=== PATIENT | male | born 2000 | race Caucasian/White ===

== ENCOUNTER 2021-09-24 11:07 | Outpatient (CLI) | payer BC ==
[2021-09-24 21:49] LABS: SARS-CoV-2 PCR by NAA Not Detected (NotDetected)
== END 2021-09-24 11:08 | disposition home or self-care (01) ==
LOC: LABBT 11:07
PROVIDERS: ATTEND Urology
DX: Z20.822 Contact with and (suspected) exposure to COVID-19 (principal)
CPT/HCPCS: U0003; U0005

== ENCOUNTER 2021-09-26 08:03 | Day surgery (SDC) | payer BC ==
[2021-09-25 09:50] VITALS: BMI 25.7
[2021-09-26] MEDS ORDERED: Midazolam HCl 2 mg/2 ml Vial ONE (11:22)
[2021-09-26] MEDS ORDERED: fentaNYL Citrate/PF 100 MCG/2 ML SYRINGE ONE (11:23)
[2021-09-26] MEDS ORDERED: Ioversol 68 % 50 ML VIAL ONE (11:26)
[2021-09-26] MEDS ORDERED: Levofloxacin 500 mg/D5W 100 ml Premix Bag ONE (11:37)
[2021-09-26] MEDS ORDERED: Dexamethasone 20 MG/5 ML VIAL ONE (11:42)
[2021-09-26] MEDS ORDERED: PROPOFOL 200 MG/20 ML VIAL ONE (11:42)
[2021-09-26] MEDS ORDERED: Lidocaine 1% PF 5 ML VIAL ONE (11:42)
[2021-09-26] MEDS ORDERED: Ondansetron PF 4 MG/2 ML Vial ONE (11:42)
[2021-09-26] MEDS ORDERED: Phenazopyridine HCl 100 MG TAB ONE (13:14)
[2021-09-26] MEDS ORDERED: Oxybutynin 5 MG TAB ONE (13:14)
[2021-09-26] MEDS ORDERED: Ketorolac Tromethamine 30 MG/ML VIAL ONE (13:14)
[2021-09-26] MEDS ORDERED: Fentanyl 100 MCG/2 ML VIAL ONE (13:23)
== END 2021-09-26 15:15 | disposition home or self-care (01) ==
LOC: SDC 08:03
PROVIDERS: ATTEND Urology
PROC: 0T768DZ Dilation of Right Ureter with Intraluminal Device, Via Natural or Artificial Opening Endoscopic (ICD-10-PCS; principal; 2021-09-26)
PROC: 0TF38ZZ Fragmentation in Right Kidney Pelvis, Via Natural or Artificial Opening Endoscopic (ICD-10-PCS; principal; 2021-09-26)
DX: N20.1 Calculus of ureter (principal); G80.9 Cerebral palsy, unspecified; Z79.899 Other long term (current) drug therapy
CPT/HCPCS: 74420; C2617; J1100; J1885; J1956; J2250; J2405; J2704; J3010; Q9967

== ENCOUNTER 2021-10-28 13:49 | Outpatient (CLI) | payer BC | END 2021-10-28 13:50 | disposition home or self-care (01) | LOC: BICULT 13:49 | PROVIDERS: ATTEND Urology | DX: N20.1 Calculus of ureter (principal) | CPT/HCPCS: 76770 ==